=== PATIENT | female | born 1975 | race African-American/Black ===

== ENCOUNTER 2018-07-21 15:19 | Emergency (ER) | payer MEDICAID ==
[~2018-07-21] VITALS: Ht 172.7 cm; Wt 122.7 kg
[2018-07-21 15:27] VITALS: Ht 172.7 cm; Wt 122.7 kg
[2018-07-21 18:02] LABS: APPEARANCE HAZY (CLEAR); BILIRUBIN NEGATIVE (NEGATIVE); COLOR YELLOW (YELLOW); GLUCOSE NEGATIVE (NEGATIVE); KETONE NEGATIVE (NEGATIVE); NITRITE NEGATIVE (NEGATIVE); PROTEIN NEGATIVE (NEGATIVE); UROBILINOGEN NORMAL (NORMAL)
[2018-07-21 18:06] LABS: BASOPHILS 0.4 % (0-2); EOSINOPHILS 3.2 % (0-7); HEMATOCRIT 37.7 % (36.0-48.0); HEMOGLOBIN 12.5 g/dL (12-16); IMMATURE GRANULOCYTES 0.2 % (0-5); LYMPHOCYTES 31.6 % (15-50); MCHC 33.2 g/dL (31.0-37.0); MCV 93.5 fL (80.0-100.0); MEAN PLATELET VOLUME 11.1 fL (7.4-10.4); MONOCYTES 6.2 % (2-11); NEUTROPHILS 58.4 % (40-80); PLATELET COUNT 256 10x3/uL (130-400); RBC 4.03 10x6/uL (4.00-5.40); RDW 13.1 % (11.5-14.5); WBC 8.5 10x3/uL (4.8-10.8)
[2018-07-21 18:27] LABS: ALBUMIN 3.6 g/dL (3.4-5.0); ALKALINE PHOSPHATASE 58 U/L (46-116); ALT (SGPT) 20 U/L (10-68); BILIRUBIN - TOTAL 0.24 mg/dL (0.2-1.3); CALC OSMOLALITY 274 mosm/kg (275-300); CALCIUM 8.7 mg/dL (8.5-10.1); CARBON DIOXIDE 25.6 mmol/L (21.0-32.0); CHLORIDE - SERUM 103 mmol/L (98-107); CREATININE - SERUM 0.8 mg/dL (0.6-1.3); GLUCOSE 96 mg/dL (74-106); PROTEIN - SERUM 7.9 g/dL (6.4-8.2); SODIUM 137 mmol/L (136-145); UREA NITROGEN 14 mg/dL (7-18); eGFR NON AFRICAN AMERICAN 84 mL/min (90-120)
[2018-07-21] MEDS ORDERED: NORVASC5 MG PO (18:42)
[2018-07-21 19:21] VITALS: BP 156/104
== END 2018-07-21 19:20 | disposition home or self-care (01) ==
LOC: D.ER 15:19
PROVIDERS: Family Medicine
DX: I10 Essential (primary) hypertension (principal)